=== PATIENT | female | born 1995 | race African-American/Black ===

== ENCOUNTER 2019-11-21 13:23 | Emergency (ER) | payer MEDICAID ==
--- NOTE | 2019-11-21 14:17 | ER Document Report ---
ED Medical Screen (RME) - General Chief Complaint: Vaginal Bleeding Stated Complaint: VAGINAL BLEEDING Time Seen by Provider: 11/21/19 14:13 Notes: 23-year-old female presented to the emergency room today stating she has been bleeding since October 02 she has a lot of abdominal discomfort pain and passing clots. She states she may have been when the bleeding started. - Related Data Allergies/Adverse Reactions: strawberry Allergy (Verified 11/21/19 14:11) Physical Exam - Vital signs Vitals: Temp Pulse Resp BP Pulse Ox 99.2 F 74 14 151/78 H 95 11/21/19 13:27 11/21/19 13:27 11/21/19 13:27 11/21/19 13:27 11/21/19 13:27 Course - Vital Signs Vital signs: Temp Pulse Resp BP Pulse Ox 99.2 F 74 14 151/78 H 95 11/21/19 13:27 11/21/19 13:27 11/21/19 13:27 11/21/19 13:27 11/21/19 13:27
[2019-11-21 15:07] LABS: ABSOLUTE EOSINOPHILS # (AUTO) 0.1 10^3/uL (0.0-0.6); ABSOLUTE LYMPHOCYTES (AUTO) 3.1 10^3/uL (0.5-4.7); ABSOLUTE MONOCYTES (AUTO) 0.5 10^3/uL (0.1-1.4); ABSOLUTE NEUT (AUTO) 5.9 10^3/uL (1.7-8.2); BASOPHILS % (AUTO) 0.2 % (0-2); HEMATOCRIT 38.9 % (36.0-47.0); HEMOGLOBIN 13.6 g/dL (12.0-15.5); LYMPHOCYTES % (AUTO) 32.3 % (13-45); MEAN CORPUSCULAR HEMOGLOBIN 32.4 pg (27.0-33.4); MEAN CORPUSCULAR HGB CONC 35.1 g/dL (32.0-36.0); MEAN CORPUSCULAR VOLUME 92 fl (80-97); MONOCYTES % (AUTO) 5.5 % (3-13); PLATELET COUNT 244 10^3/uL (150-450); RED BLOOD COUNT 4.21 10^6/uL (3.72-5.28); RED CELL DISTRIBUTION WIDTH 12.7 % (11.5-14.0); TOTAL CELLS COUNTED % (AUTO) 100 %; WHITE BLOOD COUNT 9.7 10^3/uL (4.0-10.5)
[2019-11-21 15:15] LABS: APPEARANCE,URINE CLEAR; BILIRUBIN,URINE NEGATIVE (NEGATIVE); COLOR,URINE YELLOW; GLUCOSE, URINE NEGATIVE (NEGATIVE); KETONES,URINE NEGATIVE (NEGATIVE); LEUKOCYTE ESTERASE,URINE NEGATIVE (NEGATIVE); NITRITE,URINE NEGATIVE (NEGATIVE); PROTEIN,URINE NEGATIVE (NEGATIVE); URINE SPECIFIC GRAVITY 1.014; UROBILINOGEN,URINE NEGATIVE mg/dL (<2.0)
[2019-11-21 15:28] LABS: ALBUMIN 4.2 g/dL (3.5-5.0); ALKALINE PHOSPHATASE 135 U/L (38-126); ANION GAP 7 (5-19); ASPARTATE AMINO TRANSFERASE 22 U/L (14-36); BILIRUBIN,TOTAL 0.3 mg/dL (0.2-1.3); BLOOD UREA NITROGEN 8 mg/dL (7-20); CALCIUM 9.9 mg/dL (8.4-10.2); CARBON DIOXIDE 27 mmol/L (22-30); CHLORIDE 104 mmol/L (98-107); GLUCOSE 85 mg/dL (75-110); POTASSIUM 3.9 mmol/L (3.6-5.0); TOTAL PROTEIN 7.7 g/dL (6.3-8.2)
[2019-11-21] MEDS ORDERED: IBUPROFEN 800 MG TABLET PO ONE (18:08)
--- NOTE | 2019-11-21 18:11 | ER Document Report ---
ED GI/ - General Chief Complaint: Vaginal Bleeding Stated Complaint: VAGINAL BLEEDING Time Seen by Provider: 11/21/19 14:13 Mode of Arrival: Ambulatory Information source: Patient Notes: Patient presents complaining of vaginal bleeding for the past 2 months. Patient reports pelvic cramping that worsened today. Patient also complains of nausea without vomiting. Patient denies any urinary symptoms or concern about at this time. - HPI Patient complains to provider of: Pelvic pain, Vaginal bleeding. No: Vaginal discharge, Vomiting Onset: Other - 2 month Timing/Duration: Worse Quality of pain: Cramping Pain Level: 3 Location: Pelvis Vaginal bleeding (Compared to normal period): Heavier Menstrual period history: denies: Associated symptoms: Nausea. denies: Urinary hesitancy, Urinary frequency, Urinary retention, Urinary urgency, Vaginal discharge, Vomiting Exacerbated by: Denies Relieved by: Denies Similar symptoms previously: No Recently seen / treated by doctor: No - Related Data Allergies/Adverse Reactions: strawberry Allergy (Verified 11/21/19 14:11) Past Medical History - General Information source: Patient - Social History Smoking Status: Never Smoker Frequency of alcohol use: None Drug Abuse: Marijuana Occupation: None Family History: Reviewed & Not Pertinent Patient has homicidal ideation: No - Medical History Medical History: Negative Surgical Hx: Negative Review of Systems - Review of Systems Constitutional: No symptoms reported EENT: No symptoms reported Cardiovascular: No symptoms reported. denies: Dizziness, Lightheaded Respiratory: No symptoms reported Gastrointestinal: Abdominal pain, Nausea. denies: Diarrhea, Vomiting Genitourinary: No symptoms reported. denies: Dysuria, Flank pain Female Genitourinary: Heavy/abnormal periods, Vaginal bleeding. denies: Vaginal discharge Musculoskeletal: No symptoms reported. denies: Back pain Skin: No symptoms reported Hematologic/Lymphatic: No symptoms reported Neurological/Psychological: No symptoms reported Physical Exam - Vital signs Vitals: Temp Pulse Resp BP Pulse Ox 99.2 F 74 14 151/78 H 95 11/21/19 13:27 11/21/19 13:27 11/21/19 13:27 11/21/19 13:27 11/21/19 13:27 - General General appearance: Appears well, Alert In distress: None - HEENT Head: Normocephalic, Atraumatic Eyes: Normal Nasal: Normal Mouth/Lips: Normal Mucous membranes: Normal Neck: Normal, Supple. No: Lymphadenopathy - Respiratory Respiratory status: No respiratory distress Chest status: Nontender Breath sounds: Normal. No: Rales, Rhonchi, Stridor, Wheezing Chest palpation: Normal - Cardiovascular Rhythm: Regular Heart sounds: S1 appreciated, S2 appreciated Murmur: No - Abdominal Inspection: Morbidly Obese Distension: No distension Bowel sounds: Normal Tenderness: Tender - LLQ, suprapubic tenderness Organomegaly: No organomegaly - Genitourinary External exam: Normal Speculum exam: Cervix closed Vaginal bleeding: Mild Bimanuel exam: Adnexal tenderness - Left side Notes: PCT [facility] as standby - Back Back: Normal, Nontender. No: CVA tenderness - Extremities General upper extremity: Normal inspection, Normal strength General lower extremity: Normal inspection, Normal strength - Neurological Neuro grossly intact: Yes Cognition: Normal [place] Coma Scale Eye Opening: Spontaneous [place] Coma Scale Verbal: Oriented [place] Coma Scale Motor: Obeys Commands [place] Coma Scale Total: 15 - Psychological Associated symptoms: Normal affect, Normal mood - Skin Skin Temperature: Warm Skin Moisture: Dry Skin Color: Normal Course - Re-evaluation Re-evalutation: 11/21/19 20:13 Patient with stable H&H and no excessive vaginal bleeding at this time. No acute findings noted on ultrasound. Patient denies any concerns about STI. Will encourage outpatient follow-up with drier take off tender for further evaluation at this time. - Vital Signs Vital signs: Temp Pulse Resp BP Pulse Ox 99.2 F 74 14 151/78 H 95 11/21/19 14:11 11/21/19 13:27 11/21/19 13:27 11/21/19 13:27 11/21/19 13:27 - Laboratory Result Diagrams: 11/21/19 14:40 11/21/19 14:40 Laboratory results interpreted by me: 11/21/19 11/21/19 14:30 14:40 Alkaline Phosphatase 135 H Urine Blood MODERATE H 11/21/19 20:13 Labs- All tests 24 hr 11/21/19 11/21/19 11/21/19 14:30 14:40 14:40 WBC RBC Hgb Hct MCV MCH MCHC RDW Plt Count Lymph % (Auto) [place] % (Auto) Eos % (Auto) Baso % (Auto) Absolute Neuts (auto) Absolute Lymphs (auto) Absolute Monos (auto) Absolute Eos (auto) Absolute Basos (auto) Seg Neutrophils % Sodium Potassium Chloride Carbon Dioxide Anion Gap BUN Creatinine Est GFR ( Amer) Est GFR (MDRD) Non-Af Glucose Calcium Total Bilirubin Direct Bilirubin Neonat Total Bilirubin Neonat Direct Bilirubin Neonat Indirect Bili AST ALT Alkaline Phosphatase Total Protein Albumin Beta HCG, Quant < 2.39 Total Beta HCG NEGATIVE Urine Color YELLOW Urine Appearance CLEAR Urine pH 7.0 Ur Specific [place] 1.014 Urine Protein NEGATIVE Urine Glucose (UA) NEGATIVE Urine Ketones NEGATIVE Urine Blood MODERATE H Urine Nitrite NEGATIVE Urine Bilirubin NEGATIVE Urine Urobilinogen NEGATIVE Ur Leukocyte Esterase NEGATIVE Urine WBC (Auto) 0 Urine RBC (Auto) 5 Squamous Epi Cells Auto <1 Urine Mucus (Auto) RARE Urine Ascorbic Acid NEGATIVE Trichomonas (Wet Prep) Vaginal WBC Vaginal RBC Vaginal Yeast Blood Type B POSITIVE Rhogam Indicated RHOGAM NOT INDICATED 11/21/19 11/21/19 11/21/19 14:40 14:40 19:41 WBC 9.7 RBC 4.21 Hgb 13.6 Hct 38.9 MCV 92 MCH 32.4 MCHC 35.1 RDW 12.7 Plt Count 244 Lymph % (Auto) 32.3 [place] % (Auto) 5.5 Eos % (Auto) 1.0 Baso % (Auto) 0.2 Absolute Neuts (auto) 5.9 Absolute Lymphs (auto) 3.1 Absolute Monos (auto) 0.5 Absolute Eos (auto) 0.1 Absolute Basos (auto) 0.0 Seg Neutrophils % 61.0 Sodium 138.1 Potassium 3.9 Chloride 104 Carbon Dioxide 27 Anion Gap 7 BUN 8 Creatinine 0.61 Est GFR ( Amer) > 60 Est GFR (MDRD) Non-Af > 60 Glucose 85 Calcium 9.9 Total Bilirubin 0.3 Direct Bilirubin 0.0 Neonat Total Bilirubin Not Reportable Neonat Direct Bilirubin Not Reportable Neonat Indirect Bili Not Reportable AST 22 ALT 19 Alkaline Phosphatase 135 H Total Protein 7.7 Albumin 4.2 Beta HCG, Quant Total Beta HCG Urine Color Urine Appearance Urine pH Ur Specific [place] Urine Protein Urine Glucose (UA) Urine Ketones Urine Blood Urine Nitrite Urine Bilirubin Urine Urobilinogen Ur Leukocyte Esterase Urine WBC (Auto) Urine RBC (Auto) Squamous Epi Cells Auto Urine Mucus (Auto) Urine Ascorbic Acid Trichomonas (Wet Prep) NO TRICHOMONAS SEEN Vaginal WBC 1+ WBCS SEEN Vaginal RBC 1+ RBCS SEEN Vaginal Yeast NO YEAST SEEN Blood Type Rhogam Indicated - Diagnostic Test Radiology reviewed: Reports reviewed Discharge - Discharge Clinical Impression: Vaginal bleeding Condition: Stable Disposition: HOME, SELF-CARE Instructions: Vaginal Bleeding ([facility]), Use of [id number] Ibuprofen ([facility]) Additional Instructions: Return immediately for any new or worsening symptoms Followup with your primary care provider, call tomorrow to make a followup appointment Follow-up with a drier take off tender for further evaluation, call tomorrow for an appointment Referrals: [facility] [Provider Group] - Follow up as needed
--- NOTE | 2019-11-21 19:39 | RADIOLOGY REPORT (SQ) ---
EXAM DESCRIPTION: U/S NON OB PEL TV W/DOPPLER IMAGES COMPLETED DATE/TIME: 11/21/2019 7:22 pm REASON FOR STUDY: pelvic pain, vag bleeding COMPARISON: None. TECHNIQUE: Dynamic and static grayscale images acquired of the pelvis via transvaginal approach and recorded on PACS. Additional selected color Doppler and spectral images recorded. LIMITATIONS: None. FINDINGS: UTERUS: Contour normal. No mass. ENDOMETRIAL STRIPE: Prominent. Active bleeding. CERVIX: 2.3 cm. RIGHT OVARY AND DOPPLER: Normal size. No worrisome masses. Normal arterial vascular flow without evid ence for torsion. LEFT OVARY AND DOPPLER: Normal size. No worrisome masses. Normal arterial vascular flow without evide nce for torsion. FREE FLUID: None noted. OTHER: No other significant finding. MEASUREMENTS: UTERUS: 7.3 x 3.5 x 3.4 cm ENDOMETRIAL STRIPE: 17 mm RIGHT OVARY: 3.5 x 2.4 x 2.2 cm LEFT OVARY: 3.3 x 2.5 x 2.2 cm IMPRESSION: Thickened endometrium with what appears to be active bleeding. No uterine fibroid is id entified. TECHNICAL DOCUMENTATION: JOB ID: [id number] 2010 [employer]- All Rights Reserved Rev-10/13 Reading location - IP/workstation name: [email or web address]
[2019-11-21 19:54] LABS: RBCS (WET MOUNT) 1+ RBCS SEEN; T.VAGINALIS (WET MOUNT) NO TRICHOMONAS SEEN; WBCS (WET MOUNT) 1+ WBCS SEEN; YEAST (WET MOUNT) NO YEAST SEEN
[2019-11-21 20:32] VITALS: BP 111/57
[2019-11-21 21:19] LABS: CHLAM PCR NOT DETECTED (NOT DETECT)
== END 2019-11-21 20:28 | disposition home or self-care (01) ==
LOC: ER 13:23
DX: N93.9 Abnormal uterine and vaginal bleeding, unspecified (principal); R10.2 Pelvic and perineal pain; R11.0 Nausea; R10.9 Unspecified abdominal pain
CPT/HCPCS: 36415; 76830; 80053; 81001; 84702; 85025; 86900; 86901; 87210; 87491; 87591; 93976; 99284